=== PATIENT | male | born 1955 | race Caucasian/White ===

== ENCOUNTER → 2016-06-08 | Outpatient (CLI) | payer BC ==
[~2016-06-08] MED LIST: AMB10 PO; AZIT250T PO; CHOL1000 PO; MULT-506 PO; PANT40TA PO; PRED10TA PO; TRAM-10 PO
== END | disposition home or self-care (01) ==
LOC: C.LABBFT 11:19
PROVIDERS: ATTEND Internal Medicine
DX: R51 Headache (principal)

== ENCOUNTER 2016-06-10 14:10 | Emergency (ER) | payer BC ==
[~2016-06-10] VITALS: Ht 182.9 cm; Wt 92.9 kg
[~2016-06-10 14:10] MED LIST changes: -AZIT250T PO; -CHOL1000 PO; -PRED10TA PO; -TRAM-10 PO
[2016-06-10 14:20] VITALS: TEMP 36.4; Ht 182.9 cm; Wt 92.9 kg
--- NOTE | 2016-06-10 15:43 | EMERGENCY ROOM VISIT NOTE ---
History Report prepared by Macey: Jossue Steele Under the Supervision of: Dr. Lamin Gooden M.D. First contact with patient: 15:02 Chief Complaint: EYE ASSESSMENT Stated Complaint: BLURRY VISION L EYE History of Present Illness The patient is a 60 year old male who presents to the Emergency Room with complaints of persistent blurry vision of the left eye for the past week. The patient is sensitive to light. The patient also complains of some mild head pain behind the left eye. The patient was experiencing congestion as well. He saw his PCP two days ago, who diagnosed him with left-sided sinusitis. The patient was started on Prednisone and an antibiotic (Zithromax). The patient was told to come to the ED if his symptoms persisted. The patient denies any trauma or scratches to the eyes. The patient wears glasses, which correct his vision to 20/20. He saw his seals engraver this past April. Nothing was changed at that time. The patient has had his ocular pressure checked. He notes that the pressure was high one time, but he cannot remember in which eye. The patient denies any history of hypertension. Source of History: patient Onset: one week Position: eye (left) Quality: other (blurry vision) Timing: other (persistent) Associated Symptoms: + headache Review of Systems See HPI for pertinent positives & negatives. A total of 10 systems reviewed and were otherwise negative. Past Medical & Surgical Medical Problems: (1) HLD (hyperlipidemia) Family History No pertinent family history Social History Smoking Status: Never Smoker Marital Status: Occupation Status: employed Current/Historical Medications Scheduled Azithromycin (Zithromax), 250 MG PO DAILY Cholecalciferol (Vitamin D3), Unknown Dose PO BID Multivitamin (Multivitamin), 1 TAB PO DAILY Pantoprazole (Protonix), 40 MG PO DAILY Prednisone Tab (Prednisone), 10 MG PO UD Zolpidem Tartrate (Ambien *), 10 MG PO HS PRN Scheduled PRN Tramadol (Ultram), 50-100 MG PO Q6H PRN for Pain Allergies Coded Allergies: Latex (Verified Allergy, Unknown, RASH, 06/10/16) Penicillins (Verified Allergy, Unknown, CHILDHOOD REACTION, 06/10/16) Gluten Meal (Unverified Adverse Reaction, Intermediate, BLOATING, 06/10/16) Gluten (Unverified Adverse Reaction, Unknown, BLOATING, 06/10/16) Physical Exam Vital Signs Date Time Temp Pulse Resp B/P Pulse Ox O2 Delivery O2 Flow Rate FiO2 06/10/16 17:34 64 16 150/88 98 06/10/16 16:12 58 19 150/94 99 Room Air 06/10/16 14:20 36.4 65 18 172/115 97 Room Air Physical Exam GENERAL: Patient is in no acute distress. HEENT: No acute trauma, normocephalic atraumatic, mucous membranes moist, no nasal congestion, no scleral icterus. no proptosis, pupils are equal round and reactive to light, no left eye injection or tearing, extraocular movements are intact and full, no sinus discomfort with percussion. NECK: No stridor, no adenopathy, no meningismus, trachea is midline. LUNGS: Clear to auscultation bilaterally, no wheeze, no rhonchi, breath sounds equal. HEART: Without murmurs gallops or rubs, regular rate and rhythm. ABDOMEN: Soft, nontender, bowel sounds positive, no hernias, no peritonitis. EXTREMITIES: No cyanosis or edema, full range of motion of all the joints without pain or difficulty, no signs for acute trauma. NEUROLOGIC: Oriented x 3, no acute motor or sensory deficits, no focal weakness. No pronator drift. No cerebellar dysfunction. SKIN: No rash, no jaundice, no diaphoresis. LEFT EYE EXAM POST-DILATION: Eyegrounds are intact, no papilledema, no hemorrhages, no issues identified. Medical Decision & Procedures ER Provider Diagnostic Interpretation: Ocular pressure: 24 on the right, [address] results as stated below per my review and radiologist interpretation: SINUS CT CT DOSE: 577.80 mGy.cm HISTORY: left eye face pain, poss sinusitis TECHNIQUE: Multiaxial CT images of the paranasal sinuses were performed and reformatted in the coronal plane without the use of contrast. COMPARISON: None. FINDINGS: No fluid levels within the paranasal sinuses. Mild mucoperiosteal thickening within the floor of the frontal sinuses, ethmoid air cells, and bilateral maxillary sinuses. There are small retention cysts within the left maxillary sinus and sphenoid sinus. The mastoid air cells are clear. The bilateral ostiomeatal units are patent. The nasal septum is essentially midline. The orbits are unremarkable. IMPRESSION: Mild chronic sinus disease as described above. No fluid levels to suggest acute sinusitis at this time. Electronically signed by: Humberto Dee M.D. 06/10/2016 4:03 PM Dictated Date/Time: 06/10/2016 3:58 PM Medications Administered Medications (Trade) Dose Ordered Sig/Sd Route Start Time Stop Time Status Last Admin Dose Admin Tropicamide (Mydriacyl 0.5% Oph Soln) 2 drops NOW ONCE OP 06/10/16 16:15 06/10/16 16:16 DC 06/10/16 16:11 2 DROPS Procedure Slit Lamp Examination Indication: Blurry vision. The left eye was prepped with topical proparacaine. Slit lamp examination was performed in the standard fashion. Cornea appeared clear. Anterior chamber clear. Scleral injection not present. No discharge present. Fluorescein examination performed and revealed no scratches or foreign debris. No foreign bodies noted. Negative Antonia sign. The patient tolerated the procedure well without complication. ED Course 1503: The patient was evaluated in room B12b. A complete history and physical exam was performed. 1615: Tropicamide 2 drops OP. Left eye reexamined. 1704: Spoke with Dr. Albert, Facilities Operator. He said the patient can be discharged. 1712: Reassessed the patient. Discussed the findings with him. He verbalized understanding and agreement of the treatment plan. The patient is ready for discharge. Medical Decision Differential diagnosis includes glaucoma, corneal irritation, retinal detachment , retroorbital hematoma, sinusitis, migraine, optic neuritis. The patient presents with some left eye discomfort and some blurry vision in the left eye. His symptoms have been ongoing for several days. He is on Zithromax and prednisone for sinusitis. On exam, the patient did not have tearing or scleral injection. His pupil on the left was normal in size and reactive to light. Eye pressure testing was equal on both sides. His slit lamp exam was unremarkable as noted above. I did dilate his left eye, the eye grounds were intact without papilledema, there was no hemorrhage. His visual acuity was 20/25 in both eyes. There was no left -sided facial redness, there was no proptosis. No signs of a facial cellulitis. Sinus CT showed no evidence for sinusitis that was thought acute, only chronic findings noted. There was no evidence for problems with the left orbit. I spoke with the on-call photographic printer. The patient is being discharged with an outpatient evaluation tomorrow. The cause for all his symptoms is unclear. He was reassured though and discharged home. Consults Time Called: 1699 Consulting Physician: Dr. Albert, Facilities Operator Returned Call: [phone]: Spoke with Dr. Albert, Facilities Operator. He said the patient can be discharged. Impression Primary Impression: Left eye pain Additional Impression: Blurry vision, left eye Scribe Attestation The scribe's documentation has been prepared under my direction and personally reviewed by me in its entirety. I confirm that the note above accurately reflects all work, treatment, procedures, and medical decision making performed by me. Departure Information Dispostion Home / Self-Care Referrals Tavares Haro M.D. (PCP) Forms HOME CARE DOCUMENTATION FORM, IMPORTANT VISIT INFORMATION Patient Instructions My [facility] Additional Instructions call [facility] office in the am for an appt eye workup today was ok continue the meds you are on now until finished return if worsening Problem Qualifiers
--- NOTE | 2016-06-10 16:05 | DIAGNOSTIC IMAGING REPORT ---
SINUS CT CT DOSE: 577.80 mGy.cm HISTORY: left eye face pain, poss sinusitis TECHNIQUE: Multiaxial CT images of the paranasal sinuses were performed and reformatted in the coronal plane without the use of contrast. COMPARISON: None. FINDINGS: No fluid levels within the paranasal sinuses. Mild mucoperiosteal thickening within the floor of the frontal sinuses, ethmoid air cells, and bilateral maxillary sinuses. There are small retention cysts within the left maxillary sinus and sphenoid sinus. The mastoid air cells are clear. The bilateral ostiomeatal units are patent. The nasal septum is essentially midline. The orbits are unremarkable. IMPRESSION: Mild chronic sinus disease as described above. No fluid levels to suggest acute sinusitis at this time. Electronically signed by: Humberto Dee M.D. 06/10/2016 4:03 PM Dictated Date/Time: 06/10/2016 3:58 PM
[2016-06-10] MEDS ORDERED: TRAM-10 PO (16:10)
[2016-06-10] MEDS ORDERED: PRED10TA PO (16:10)
[2016-06-10] MEDS ORDERED: AZIT250T PO (16:10)
[2016-06-10] MEDS ORDERED: CHOL1000 PO (16:13)
[2016-06-10] MEDS ORDERED: TROPICAMIDE 0.5% OP SOLN 15 ML BTL OP ONE (16:15)
[2016-06-10 17:34] VITALS: BP 150/88; PULSE 64; O2SAT 98
== END 2016-06-10 17:35 | disposition home or self-care (01) ==
LOC: C.EDB 14:10
DX: H57.12 Ocular pain, left eye (principal); H53.8 Other visual disturbances; J01.90 Acute sinusitis, unspecified

== ENCOUNTER → 2016-06-21 | Outpatient (CLI) | payer BC ==
[~2016-06-21] MED LIST changes: +AZIT250T PO; +CHOL1000 PO; +PRED10TA PO; +TRAM-10 PO
[2016-06-21 17:54] LABS: BASO % 0.5 %; BASO ABS # 0.03 K/uL (0-0.2); COMPLETE YES; EOS % 1.9 %; HEMATOCRIT 46.6 % (42-52); IG% 0.2 %; LYMPH % 38.3 %; LYMPH ABS # 2.43 K/uL (1.2-3.4); MEAN CELL VOLUME 87.1 fL (80-100); MEAN CORPUSCULAR HEMOGLOBIN 30.1 pg (25-34); MEAN CORPUSCULAR HGB CONC 34.5 g/dl (32-36); MONO % 11.4 %; NEUT % 47.7 %; PLATELET COUNT 227 K/uL (130-400); RED BLOOD COUNT 5.35 M/uL (4.7-6.1); WHITE BLOOD COUNT 6.34 K/uL (4.8-10.8)
[2016-06-21 18:22] LABS: ALT/SGPT 36 U/L (12-78); BLOOD UREA NITROGEN 16 mg/dl (7-18); BUN/CREATININE RATIO 17.5 (10-20); CALCIUM 8.9 mg/dl (8.5-10.1); CARBON DIOXIDE 25 mmol/L (21-32); CHLORIDE 105 mmol/L (98-107); CREATININE 0.91 mg/dl (0.60-1.40); GLUCOSE 104 mg/dl (70-99); POTASSIUM 3.7 mmol/L (3.5-5.1); SODIUM 141 mmol/L (136-145)
[2016-06-21 18:32] LABS: ALB/GLOB RATIO 1.3 (0.9-2); ALKALINE PHOSPHATASE 73 U/L (45-117); AST/SGOT 21 U/L (15-37); THYROID STIMULATING HORMONE 0.912 uIu/ml (0.300-4.500)
[2016-06-22 06:16] LABS: ESTIMATED AVERAGE GLUCOSE 123 mg/dl; HA1C FLAG Normal (Normal)
== END | disposition home or self-care (01) ==
LOC: C.LABBFT 12:23
PROVIDERS: ATTEND Internal Medicine
DX: R73.9 Hyperglycemia, unspecified (principal); H53.8 Other visual disturbances

== ENCOUNTER → 2017-03-02 | Outpatient (CLI) | payer BC ==
[2017-03-02 10:21] LABS: ESTIMATED AVERAGE GLUCOSE 117 mg/dl; HA1C FLAG Normal (Normal)
[2017-03-02 10:38] LABS: ALT/SGPT 27 U/L (12-78); AST/SGOT 17 U/L (15-37); BLOOD UREA NITROGEN 15 mg/dl (7-18); CALCIUM 8.7 mg/dl (8.5-10.1); CARBON DIOXIDE 27 mmol/L (21-32); CHLORIDE 106 mmol/L (98-107); CREATININE 0.88 mg/dl (0.60-1.40); GLUCOSE 101 mg/dl (70-99); POTASSIUM 4.1 mmol/L (3.5-5.1); SODIUM 140 mmol/L (136-145)
[2017-03-02 10:44] LABS: ALB/GLOB RATIO 1.1 (0.9-2); ALKALINE PHOSPHATASE 94 U/L (45-117); CHOLESTEROL 141 mg/dl (0-200); CHOLESTEROL/HDL RATIO 2.7; HDL CHOLESTEROL 52 mg/dl; LDL CHOLESTEROL CALCULATED 72 mg/dl; PROSTATE SPECIFIC ANTIGEN 0.974 ng/ml (0.000-4.000); TRIGLYCERIDES 87 mg/dl (0-150); VERY LOW DENSITY LIPOPROT CALC 17 mg/dl
== END | disposition home or self-care (01) ==
LOC: C.LAB 08:38
PROVIDERS: ATTEND Physician Assistant Medical
DX: R73.9 Hyperglycemia, unspecified (principal); Z12.5 Encounter for screening for malignant neoplasm of prostate; E55.9 Vitamin D deficiency, unspecified

== ENCOUNTER → 2017-05-02 | Outpatient (CLI) | payer BC ==
--- NOTE | 2017-05-07 11:38 | CODING QUERY MEDICAL NECESSITY ---
SUPPORTING DIAGNOSIS NEEDED A supporting diagnosis is required for the test/procedure performed on this patient in order for us to be reimbursed by the patient's insurance. Please provide a supporting diagnosis for the following test/procedure listed below next to the test name along with your signature. *If there is no additional diagnosis for this patient that would support the following test/procedure please document that below next to the test/procedure. Test(s)/Procedure(s) that require a supporting diagnosis: * DXA, BONE DENSITY AXIAL DIAGNOSIS: Provider Signature: Date: Thank you Magda Chapatiz Information Management Once completed, please kindly fax back to [phone] For questions please call [phone]
== END | disposition home or self-care (01) ==
LOC: C.MAMM 07:53
PROVIDERS: ATTEND Nurse Practitioner Family
DX: K90.0 Celiac disease (principal)

== ENCOUNTER 2020-06-05 02:38 | Inpatient (IN) ==
[2020-06-05] MEDS ORDERED: fentaNYL citrate 100 MCG/2 ML VIAL ONE ×3 (02:50→03:55)
[2020-06-05 03:00] LABS: Basophils # (auto) 0.03 K/uL (0-0.2); Basophils % (auto) 0.4 %; Eosinophils # (auto) 0.14 K/uL (0-0.5); Eosinophils % (auto) 2.1 %; Hematocrit (blood only) 48.2 % (42-52); Hemoglobin 16.3 g/dL (14.0-18.0); Immature Granulocytes # (auto) 0.01 K/uL (0.00-0.02); Immature Granulocytes % (auto) 0.1 %; Lymphocytes # (auto) 2.75 K/uL (1.2-3.4); Lymphocytes % (auto) 40.9 %; Mean Corpuscular Hgb Conc 33.8 g/dL (32-36); Mean Corpuscular Volume 88.6 fL (80-100); Mean Platelet Volume 10.9 fL (7.4-10.4); Monocytes # (auto) 0.64 K/uL (0.11-0.59); Monocytes % (auto) 9.5 %; Neutrophils # (auto) 3.16 K/uL (1.4-6.5); Platelet Count 243 K/uL (130-400); RDW Coefficient of Variation 13.4 % (11.5-14.5); RDW Standard Deviation 43.2 fL (36.4-46.3); Red Blood Count 5.44 M/uL (4.7-6.1); White Blood Count 6.73 K/uL (4.8-10.8)
[2020-06-05] MEDS ORDERED: niCARdipine HCL INJ 2.5 MG/ML 10 ML AMP ONE (03:09)
[2020-06-05] MEDS ORDERED: HEPARIN (PORCINE) 1000 UNIT/ML 10 ML (CATH LAB USE ONLY) ONE (03:09)
[2020-06-05] MEDS ORDERED: MIDAZOLAM HCL 1 MG/ML 2ML VIAL ONE ×2 (03:10→03:51)
[2020-06-05] MEDS ORDERED: NITROGLYCERIN/D5W 100MCG/ML 20ML SYR ONE (03:10)
[2020-06-05 03:19] LABS: Albumin Level 3.8 gm/dl (3.4-5.0); BUN Creatinine Ratio 25.8 (10-20); Creatinine Clr Calc Pharmacy 75.3 ml/min; Est GFR (African American) 85.2; Est GFR (Non-African American) 73.5; Potassium 3.7 mmol/L (3.5-5.1)
[2020-06-05 03:26] LABS: iSTAT Creatinine 0.7 mg/dl (0.6-1.3); iSTAT Hemoglobin 15.6 g/dl (14.0-18.0); iSTAT Ionized Calcium 1.15 mmol/l (1.12-1.32); iSTAT Potassium 3.6 mmol/L (3.3-5.0)
--- NOTE | 2020-06-05 03:27 | Pre Anesthesia Assessment ---
Date of Service June 05, 2020 Pre Sedation Assessment Vital Signs Temp Pulse Pulse Resp BP Pulse Ox 06/05/20 03:02 97 06/05/20 02:49 97.9 F 62 16 136/85 98 06/05/20 02:44 63 16 97 Cardiovascular RRR, no murmur, no edema Respiratory normal respiratory effort, lungs clear to auscultation Pre-Sedation Airway Assessment Smoking Status: Never smoker Hx Sleep Apnea: No Hx Difficult Intubation: No Short, Thick Neck: No Thyromental Distance: > or= 3.5 Finger Breadths Oral Cavity: + WNL Mallampati Class: III ASA: ASA3 Procedure Planning Contraindications for Sedation: none Current Medications Reviewed: Yes Notes The planned sedation has been discussed with the patient. Informed Consent was obtained. I have identified the patient, determined the appropriateness of sedation and have assessed the patient immediately prior to the procedure. All medicine(s) and interventions are by my order.
[2020-06-05 03:30] LABS: Albumin Globulin Ratio 1.1 (0.9-2); Bilirubin,Total 0.6 mg/dl (0.2-1); Creatine Kinase MB 3.2 ng/ml (0.5-3.6); Globulin 3.4 gm/dl (2.5-4.0); Thyroid Stimulating Hormone 1.75 uIu/ml (0.300-4.500); Total Protein 7.2 gm/dl (6.4-8.2); Troponin I 0.019 ng/ml (0-0.045)
[2020-06-05 03:32] LABS: INR 1.1 (0.9-1.1); Partial Thromboplastin Ratio 0.9; Partial Thromboplastin Time 25.9 Seconds (21.0-31.0); Prothrombin Time 11.2 Seconds (9.0-12.0)
--- NOTE | 2020-06-05 03:32 | Cardiology Consultation ---
Date of Consultation June 05, 2020 Assessment & Plan (1) Acute LA: Presentation consistent with anterior STEMI and recommend proceeding with emergent cardiac catheterization and likely primary PCI. No apparent contraindications to procedure. Discussed risks, benefits, alternatives of procedure with patient and they are willing to proceed. Further recommendations pending findings of coronary angiography. History of Present Illness History of Present Illness 64-year-old man here with acute chest pain and ECG concerning for acute LA. Patient seen emergently in the ED after heart alert activated on arrival. No prior cardiac history. Cardiac risk factors include family history of CAD involving his father who had multiple MIs. Other medical issues include GERD, celiac disease, diverticulosis and chronic venous insufficiency. Chest pain began approximately 12:50 AM, almost 2 hours prior to arrival waking him from sleep. Describes initially nausea followed by pain in his left wrist and then chest pain at its worst 7-10.. Denies similar symptoms in the past. ECG in route unremarkable Chest pain variable, down to 2 out of 10 after nitroglycerin, fentanyl. Hemodynamically stable. EKG in ED showed sinus rhythm with anterior ST elevations. Allergies Allergy/AdvReac Type Severity Reaction Status Date / Time latex Allergy Unknown RASH Verified 06/05/20 02:47 Penicillins Allergy Unknown CHILDHOOD Verified 06/05/20 02:47 REACTION gluten AdvReac Intermediate BLOATING Verified 06/05/20 02:47 Home Medications Medication Instructions Recorded Confirmed Type multivitamin 1 tab PO DAILY #30 tab 11/27/18 06/05/20 Rx escitalopram oxalate 10 mg tablet 10 mg PO DAILY #30 tab 01/11/20 06/05/20 Rx zolpidem 10 mg tablet 10 mg PO DAILY PRN #90 tab 05/13/20 06/05/20 Rx pantoprazole 40 mg tablet,delayed 40 mg PO DAILY #90 tab 06/02/20 06/05/20 Rx release calcium carb and citrate-vitD3 1 tab PO DAILY 06/05/20 06/05/20 History cranberry 500 mg PO DAILY 06/05/20 06/05/20 History elderberry fruit and flower 1 cap PO DAILY 06/05/20 06/05/20 History Patient History Medical History Diverticulosis Surgical History History of cholecystectomy History of colonoscopy (12/23/15) History of esophagogastroduodenoscopy History of hernia repair History of varicose vein ligation Family History Unknown Diabetes Coronary heart disease Mother Amyotrophic lateral sclerosis Father Hypertension Cancer Myocardial infarction Denies family history of Ovarian cancer Prostate cancer Breast cancer Colorectal cancer Social History Smoking Status: Never smoker Second Hand Exposure: No; Hx Alcohol Use: No Hx Substance Use: No Visual Impairment: No Limitations Hearing Ability: Normal marital status: Current Living Situation: Spouse current occupational status: employed current occupation: construction Feels Safe at Home: Yes Childhood Exposure to Second-Hand Smoke: Yes Dental Care, Regularly: No Physical Activity Frequency: Daily Review of Systems Review of Systems: All systems reviewed & are unremarkable except as noted in HPI & below Physical Exam Physical Exam: General: Uncomfortable, diaphoretic HEENT: Sclerae anicteric Lungs: Clear to auscultation bilaterally Cardiac: Regular rate and rhythm, no murmurs. Abdomen: Soft, nontender Extremities: Warm, well perfused, trace edema, reticular veins/telangiectasias. 2+ radial pulses Neuro: Nonfocal Psych: Alert orient x3, normal affect and mood Results & Data ([facility]) Vital Signs (Past 12 Hours) Vital Signs Temp Pulse Pulse Resp BP Pulse Ox 06/05/20 03:02 97 06/05/20 02:49 97.9 F 62 16 136/85 98 06/05/20 02:44 63 16 97 PG Care Time/CCT Total # of Minutes Spent Total Time Spent with Patient: Total time spent is greater than 50% in coordination of care (as documented) at patient's floor/unit and/or counseling patient: Coding Level of Care Code 99796 Inpt Consult Level 5 Diagnoses Acute LA I21.9
[2020-06-05] MEDS ORDERED: TICAGRELOR 90 MG TAB PO ONE (04:28)
[2020-06-05] MEDS ORDERED: ONDANSETRON INJ 2 MG/ML 2 ML VIAL IV PRN (04:37)
[2020-06-05] MEDS ORDERED: NITROGLYCERIN SL 0.4 MG/TAB TAB SL PRN (04:37)
[2020-06-05] MEDS ORDERED: ACETAMINOPHEN 325 MG TAB PO PRN (04:37)
[2020-06-05] MEDS ORDERED: MoRPHine SULFATE 2 MG/ML CARP IV PRN (04:37)
[2020-06-05] MEDS ORDERED: ALUMINUM/MAGNESIUM SUSP 30 ML UDC PO PRN (04:42)
[2020-06-05] MEDS ORDERED: ZOLPIDEM TARTRATE 10 MG TAB PO PRN (04:44)
[2020-06-05] MEDS ORDERED: SODIUM CHLORIDE 0.9% 1000ML 1,000 ML IV SCH (04:45)
--- NOTE | 2020-06-05 04:47 | Post Anesthesia Assessment ---
Date of Service June 05, 2020 Post Sedation Assessment Vital Signs Temp Pulse Pulse Resp BP Pulse Ox 06/05/20 03:02 97 06/05/20 02:49 97.9 F 62 16 136/85 98 06/05/20 02:44 63 16 97 Recovery Score Activity: Moves 4 extremities Respiration: Deep Breath/Cough Circulation: +/-20% PreAnes Value Consciousness: Fully Awake Oxygen Saturation: O2 needed for >90% Discharge Sedation Level of Care: Fast Track Phase II Post Sedation Plan On clinical assessment, the patient appears to have tolerated the sedation without complications. Patient is recovering as anticipated. Patient will continue to be monitored by nursing and may be discharged when sedation discharge criteria are met per below protocol. Upon Completions of procedure up to 15 minutes continue every 5 minute vital signs and the P.A.R. score; then discharge to a Phase I or Fast Track to Phase II per the following guidelines: * Discharge Patient to appropriate Phase II area if PAR is 8 or greater or return to pre- procedure baseline. The post - procedure orders will be as directed. * If PAR score is less than 8 or not return to pre-procedure baseline then patient will follow Phase I monitoring till PAR is reached for Phase II. The Phase I may be done in procedure room or may call to secure a Phase I area. * If naloxone or flumazenil are used for reversal, hold in Phase I for continued monitoring from when last reversal dose was given for a minimum of 60 minutes or longer pending the nurse and/or physician discretion of patient condition before discharge to Phase II. Please call the Sedation Physician to re-evaluate and complete post-note for discharge to Phase II area. Do NOT discharge from procedure sedation or Phase 1 until post- sedation evaluation note is complete by procedure /sedation MD Sedation Discharge Instructions to be given to the patient at discharge to home.
--- NOTE | 2020-06-05 04:55 | Emergency Department Note ---
Impression & Plan ST elevation (STEMI) myocardial infarction ED Provider Note NAME: JOJO MCCRARY AGE: 64 SEX: M ARRIVES VIA: Ambulance INFORMANT: Patient EMS ED PROVIDER(S): Saray Ramirez DO CHIEF COMPLAINT: Left wrist pain and chest pain PLAN: Dispositio the patient was taken to the cardiac Teletypesetter with Dr. Noriega Condition: Guarded MEDICAL DECISION MAKING: This is a 64-year-old male patient who presents to the emergency department complaining of left wrist pain and chest pain who shows signs of a STEMI on presenting EKG. A heart alert was called and he was given IV fentanyl for the chest discomfort. Patient remained hemodynamically stable here in the emergency department. Chest x-ray was unremarkable. He was prepped for the Teletypesetter. Dr. Noriega arrived in the emergency department and took him to the cardiac Teletypesetter. Triage Nursing notes reviewed and agree them. Additional history obtained from EMS Vital Signs: reviewed and unremarkable Differential diagnosis: STEMI, aortic dissection, GERD, costochondritis ER treatment provided: IV fentanyl Diagnostics interpreted by me: ECG: Normal sinus rhythm at a rate of significant ST segment elevation in leads V2, V3 and V4 consistent with a STEMI. Cardiac Monitoring: Normal sinus rhythm at a rate of 62 Laboratory studies: See below Imaging studies: As per my interpretation Chest x-ray: Narrow mediastinum no pulmonary infiltrates or cardiomegaly HPI: 64/M arrives for evaluation of left wrist pain and chest pain. The patient woke from sleep at 12:50 AM with significant nausea and left wrist pain. Patient then began to develop some left-sided chest discomfort. EMS was called. He has no past medical history of heart disease. Patient's father at the age of 88 from heart attack. Patient was given 3 sublingual nitroglycerin by EMS with some relief of his chest discomfort and wrist discomfort. In route to the hospital, the patient's chest discomfort started to return. He was given an additional sublingual nitro and baby aspirin. ROS: See above HPI for pertinent positives & negatives. A total of 10 systems reviewed and were otherwise negative. PAST MEDICAL HISTORY:Hyperlipidemia; GERD FAMILY HISTORY:Heart disease SOCIAL HISTORY:Patient lives with his ; he works in construction HOME MEDICATIONS:See list ALLERGIES:See list VITALS:See Below PHYSICAL EXAMINATION: HEENT: Head - normocephalic and atraumatic Pupils are equal, round, and reactive to light. Extraocular eye muscles are intact, and sclera are anicteric. Nose - moist nasal mucosa without discharge. Mouth - moist buccal mucosa. Oropharynx is nonerythematous and there is no tonsillar exudate or edema noted. Neck: Supple; no JVD or cervical lymphadenopathy Heart: Bradycardic rate and rhythm. There is a normal S1 and S2 with no murmurs, clicks, or gallops appreciated. Lungs: Clear to auscultation bilaterally with no wheezes, rales, or rhonchi. Abdomen: Soft, completely nontender, nondistended, with good bowel sounds. There are no palpable pulsatile masses or hepatosplenomegaly. There is no guarding, rigidity, or rebound noted. Extremities: No evidence of cyanosis, clubbing, or edema. There are easily palpable peripheral pulses. Skin: warm and diaphoretic with good turgor and no rashes. ED COURSE: Times/Reassessments: [id number]: The patient was evaluated in room C6. A complete history and physical was performed. A twelve-lead EKG was obtained which revealed evidence of a STEMI. A heart alert was called. A second IV lock was initiated. An order was placed for continuous cardiac monitoring. The patient was in a normal sinus rhythm at 62. Patient continued to complain of significant left-sided chest discomfort and left wrist pain. He was given 50 mcg of IV fentanyl. A portable chest x-ray was ordered. Patient was able to get some relief of the discomfort. Vital signs remained stable. Discussed the case at the bedside with Dr. Noriega. I have personally spent greater than 30 minutes of critical care time in the direct management of this patient. This includes bedside care, interpretation of diagnostic studies, and testing, discussion with consultants, patient, and family members, and other required patient management activities. This 30 minutes is in excess of all separately billable procedures. Saray Ramirez DO Past Med/Surg History Medical History Diverticulosis Surgical History History of cholecystectomy History of colonoscopy (12/23/15) History of esophagogastroduodenoscopy History of hernia repair History of varicose vein ligation Family History Unknown Diabetes Coronary heart disease Mother Amyotrophic lateral sclerosis Father Hypertension Cancer Myocardial infarction Denies family history of Ovarian cancer Prostate cancer Breast cancer Colorectal cancer Social History Smoking Status: Never smoker Second Hand Exposure: No; Hx Alcohol Use: No Hx Substance Use: No Communication Ability: Effective Visual Impairment: No Limitations Hearing Ability: Normal Beliefs That Will Affect Care: None marital status: Current Living Situation: Family current occupational status: employed current occupation: construction Other Information That Helps Us Care for You: No Feels Safe at Home: Yes Safety Concerns: Feels Safe At This Time Childhood Exposure to Second-Hand Smoke: Yes Dental Care, Regularly: No Physical Activity Frequency: Daily Assistive Devices: Glasses Allergies Allergies Allergy/AdvReac Type Severity Reaction Status Date / Time latex Allergy Unknown RASH Verified 06/05/20 02:47 Penicillins Allergy Unknown CHILDHOOD Verified 06/05/20 02:47 REACTION gluten AdvReac Intermediate BLOATING Verified 06/05/20 02:47 Home Meds Home Medications Medication Instructions Recorded Confirmed calcium carb and citrate-vitD3 1 tab PO DAILY 06/05/20 06/05/20 cranberry 500 mg PO DAILY 06/05/20 06/05/20 elderberry fruit and flower 1 cap PO DAILY 06/05/20 06/05/20 Previous Rx's Medication Instructions Recorded multivitamin 1 tab PO DAILY #30 tab 11/27/18 escitalopram oxalate 10 mg tablet 10 mg PO DAILY #30 tab 01/11/20 zolpidem 10 mg tablet 10 mg PO DAILY PRN #90 tab 05/13/20 pantoprazole 40 mg tablet,delayed 40 mg PO DAILY #90 tab 06/02/20 release Results & Data (ED) Vital Signs Vital Signs - 24 hr 06/05/20 02:44 06/05/20 02:49 06/05/20 02:58 Temperature 36.6 C Temperature Source Oral Pulse Rate 62 Pulse Rate [Right Finger] 63 Pulse Rhythm Regular Pulse Strength Normal Respiratory Rate 16 16 Respiratory Effort / Characteristics Non-Labored Spontaneous Respiratory Depth Normal Normal Blood Pressure 136/85 Blood Pressure Mean 102 Blood Pressure Position Lying Pulse Oximetry 97 98 Oxygen Delivery Method Nasal Cannula Room Air Nasal Cannula Oxygen Flow Rate 3 3 Sepsis Recent Fever Within 48 Hours No Sepsis New/Unexplained Change in Mental Status N/A Sepsis Action Taken by Nursing No Action Required 06/05/20 03:02 Temperature Temperature Source Pulse Rate Pulse Rate [Right Finger] Pulse Rhythm Pulse Strength Respiratory Rate Respiratory Effort / Characteristics Respiratory Depth Blood Pressure Blood Pressure Mean Blood Pressure Position Pulse Oximetry 97 Oxygen Delivery Method Nasal Cannula Oxygen Flow Rate 3 Sepsis Recent Fever Within 48 Hours Sepsis New/Unexplained Change in Mental Status Sepsis Action Taken by Nursing Laboratory Data Result diagrams: 06/05/20 02:46 06/05/20 02:46 Lab Results 06/05/20 06/05/20 06/05/20 Range/Units 02:46 02:46 02:46 WBC 6.73 (4.8-10.8) K/uL RBC 5.44 (4.7-6.1) M/uL Hgb 16.3 (14.0-18.0) g/dL POC Hgb (14.0-18.0) g/dl Hct 48.2 (42-52) % POC Hct (42-52) % MCV 88.6 (80-100) fL MCH 30.0 (25-34) pg MCHC 33.8 (32-36) g/dL RDW Std Deviation 43.2 (36.4-46.3) fL RDW Coeff of Saul 13.4 (11.5-14.5) % Plt Count 243 (130-400) K/uL MPV 10.9 H (7.4-10.4) fL Immature Gran % (Auto) 0.1 % Neut % (Auto) 47.0 % Lymph % (Auto) 40.9 % Graves % (Auto) 9.5 % Eos % (Auto) 2.1 % Baso % (Auto) 0.4 % Neut # (Auto) 3.16 (1.4-6.5) K/uL Lymph # (Auto) 2.75 (1.2-3.4) K/uL Graves # (Auto) 0.64 H (0.11-0.59) K/uL Eos # (Auto) 0.14 (0-0.5) K/uL Baso # (Auto) 0.03 (0-0.2) K/uL Immature Gran # (Auto) 0.01 (0.00-0.02) K/uL PT Cancelled INR Cancelled APTT Cancelled PTT Ratio Cancelled Activ Coag Time Kaolin (94-140) SECONDS POC Sodium (135-144) mmol/L Sodium 141 (136-145) mmol/L POC Potassium (3.3-5.0) mmol/L Potassium 3.7 (3.5-5.1) mmol/L POC Chloride (101-112) mmol/L Chloride 108 H (98-107) mmol/L Carbon Dioxide 31 (21-32) mmol/L POC Total CO2 (24-31) mmol/L Anion Gap 2.0 L (3-11) POC Anion Gap (16-25) mmol/L POC BUN (7-18) mg/dl BUN 28 H (7-18) mg/dl Creatinine 1.07 (0.6-1.4) mg/dl POC Creatinine (0.6-1.3) mg/dl Est Cr Clr Drug Dosing 75.3 ml/min Est GFR ( Amer) 85.2 Est GFR (Non-Af Amer) 73.5 BUN/Creatinine Ratio 25.8 H (10-20) Glucose 191 H (70-99) mg/dl POC Glucose (other) (70-99) mg/dl Calcium 9.0 (8.5-10.1) mg/dl POC Ioniz Calcium Eduardo (1.12-1.32) mmol/l Magnesium 2.0 (1.8-2.4) mg/dl Total Bilirubin 0.6 (0.2-1) mg/dl AST 22 (15-37) U/L ALT 31 (12-78) U/L Alkaline Phosphatase 87 (45-117) U/L Total Creatine Kinase 162 (39-308) U/L CK-MB (CK-2) 3.2 (0.5-3.6) ng/ml CK/CKMB % Calc 2.0 (0-3.0) Troponin I 0.019 (0-0.045) ng/ml Total Protein 7.2 (6.4-8.2) gm/dl Albumin 3.8 (3.4-5.0) gm/dl Globulin 3.4 (2.5-4.0) gm/dl Albumin/Globulin Ratio 1.1 (0.9-2) Triglycerides (0-150) mg/dl Cholesterol (0-200) mg/dl LDL Cholesterol Direct mg/dl LDL Cholesterol, Calc VLDL Cholesterol, Calc mg/dl HDL Cholesterol mg/dl Cholesterol/HDL Ratio Lipase 167 (73-393) U/L TSH 1.750 (0.300-4.500) uIu/ml COVID-19 Eval Order SARS-CoV-2, RNA, NAAT (NEGATIVE) 06/05/20 06/05/20 06/05/20 Range/Units 02:46 02:46 02:46 WBC (4.8-10.8) K/uL RBC (4.7-6.1) M/uL Hgb (14.0-18.0) g/dL POC Hgb (14.0-18.0) g/dl Hct (42-52) % POC Hct (42-52) % MCV (80-100) fL MCH (25-34) pg MCHC (32-36) g/dL RDW Std Deviation (36.4-46.3) fL RDW Coeff of Saul (11.5-14.5) % Plt Count (130-400) K/uL MPV (7.4-10.4) fL Immature Gran % (Auto) % Neut % (Auto) % Lymph % (Auto) % Graves % (Auto) % Eos % (Auto) % Baso % (Auto) % Neut # (Auto) (1.4-6.5) K/uL Lymph # (Auto) (1.2-3.4) K/uL Graves # (Auto) (0.11-0.59) K/uL Eos # (Auto) (0-0.5) K/uL Baso # (Auto) (0-0.2) K/uL Immature Gran # (Auto) (0.00-0.02) K/uL PT INR APTT PTT Ratio Activ Coag Time Kaolin (94-140) SECONDS POC Sodium (135-144) mmol/L Sodium (136-145) mmol/L POC Potassium (3.3-5.0) mmol/L Potassium (3.5-5.1) mmol/L POC Chloride (101-112) mmol/L Chloride (98-107) mmol/L Carbon Dioxide (21-32) mmol/L POC Total CO2 (24-31) mmol/L Anion Gap (3-11) POC Anion Gap (16-25) mmol/L POC BUN (7-18) mg/dl BUN (7-18) mg/dl Creatinine (0.6-1.4) mg/dl POC Creatinine (0.6-1.3) mg/dl Est Cr Clr Drug Dosing ml/min Est GFR ( Amer) Est GFR (Non-Af Amer) BUN/Creatinine Ratio (10-20) Glucose (70-99) mg/dl POC Glucose (other) (70-99) mg/dl Calcium (8.5-10.1) mg/dl POC Ioniz Calcium Eduardo (1.12-1.32) mmol/l Magnesium (1.8-2.4) mg/dl Total Bilirubin (0.2-1) mg/dl AST (15-37) U/L ALT (12-78) U/L Alkaline Phosphatase (45-117) U/L Total Creatine Kinase (39-308) U/L CK-MB (CK-2) (0.5-3.6) ng/ml CK/CKMB % Calc (0-3.0) Troponin I (0-0.045) ng/ml Total Protein (6.4-8.2) gm/dl Albumin (3.4-5.0) gm/dl Globulin (2.5-4.0) gm/dl Albumin/Globulin Ratio (0.9-2) Triglycerides 170 H (0-150) mg/dl Cholesterol 159 (0-200) mg/dl LDL Cholesterol Direct 94 mg/dl LDL Cholesterol, Calc Not Reportable VLDL Cholesterol, Calc 34 mg/dl HDL Cholesterol 53 mg/dl Cholesterol/HDL Ratio 3 Lipase (73-393) U/L TSH (0.300-4.500) uIu/ml COVID-19 Eval Order Covid19 [facility] SARS-CoV-2, RNA, NAAT NEGATIVE (NEGATIVE) 06/05/20 06/05/20 06/05/20 Range/Units 03:09 03:13 03:55 WBC (4.8-10.8) K/uL RBC (4.7-6.1) M/uL Hgb (14.0-18.0) g/dL POC Hgb 15.6 (14.0-18.0) g/dl Hct (42-52) % POC Hct 46 (42-52) % MCV (80-100) fL MCH (25-34) pg MCHC (32-36) g/dL RDW Std Deviation (36.4-46.3) fL RDW Coeff of Saul (11.5-14.5) % Plt Count (130-400) K/uL MPV (7.4-10.4) fL Immature Gran % (Auto) % Neut % (Auto) % Lymph % (Auto) % Graves % (Auto) % Eos % (Auto) % Baso % (Auto) % Neut # (Auto) (1.4-6.5) K/uL Lymph # (Auto) (1.2-3.4) K/uL Graves # (Auto) (0.11-0.59) K/uL Eos # (Auto) (0-0.5) K/uL Baso # (Auto) (0-0.2) K/uL Immature Gran # (Auto) (0.00-0.02) K/uL PT 11.2 INR 1.1 APTT 25.9 PTT Ratio 0.9 Activ Coag Time Kaolin 202 H (94-140) SECONDS POC Sodium 138 (135-144) mmol/L Sodium (136-145) mmol/L POC Potassium 3.6 (3.3-5.0) mmol/L Potassium (3.5-5.1) mmol/L POC Chloride 107 (101-112) mmol/L Chloride (98-107) mmol/L Carbon Dioxide (21-32) mmol/L POC Total CO2 21 L (24-31) mmol/L Anion Gap (3-11) POC Anion Gap 14.0 L (16-25) mmol/L POC BUN 26 H (7-18) mg/dl BUN (7-18) mg/dl Creatinine (0.6-1.4) mg/dl POC Creatinine 0.7 (0.6-1.3) mg/dl Est Cr Clr Drug Dosing ml/min Est GFR ( Amer) Est GFR (Non-Af Amer) BUN/Creatinine Ratio (10-20) Glucose (70-99) mg/dl POC Glucose (other) 204 H (70-99) mg/dl Calcium (8.5-10.1) mg/dl POC Ioniz Calcium Eduardo 1.15 (1.12-1.32) mmol/l Magnesium (1.8-2.4) mg/dl Total Bilirubin (0.2-1) mg/dl AST (15-37) U/L ALT (12-78) U/L Alkaline Phosphatase (45-117) U/L Total Creatine Kinase (39-308) U/L CK-MB (CK-2) (0.5-3.6) ng/ml CK/CKMB % Calc (0-3.0) Troponin I (0-0.045) ng/ml Total Protein (6.4-8.2) gm/dl Albumin (3.4-5.0) gm/dl Globulin (2.5-4.0) gm/dl Albumin/Globulin Ratio (0.9-2) Triglycerides (0-150) mg/dl Cholesterol (0-200) mg/dl LDL Cholesterol Direct mg/dl LDL Cholesterol, Calc VLDL Cholesterol, Calc mg/dl HDL Cholesterol mg/dl Cholesterol/HDL Ratio Lipase (73-393) U/L TSH (0.300-4.500) uIu/ml COVID-19 Eval Order SARS-CoV-2, RNA, NAAT (NEGATIVE) 06/05/20 Range/Units 04:10 WBC (4.8-10.8) K/uL RBC (4.7-6.1) M/uL Hgb (14.0-18.0) g/dL POC Hgb (14.0-18.0) g/dl Hct (42-52) % POC Hct (42-52) % MCV (80-100) fL MCH (25-34) pg MCHC (32-36) g/dL RDW Std Deviation (36.4-46.3) fL RDW Coeff of Saul (11.5-14.5) % Plt Count (130-400) K/uL MPV (7.4-10.4) fL Immature Gran % (Auto) % Neut % (Auto) % Lymph % (Auto) % Graves % (Auto) % Eos % (Auto) % Baso % (Auto) % Neut # (Auto) (1.4-6.5) K/uL Lymph # (Auto) (1.2-3.4) K/uL Graves # (Auto) (0.11-0.59) K/uL Eos # (Auto) (0-0.5) K/uL Baso # (Auto) (0-0.2) K/uL Immature Gran # (Auto) (0.00-0.02) K/uL PT INR APTT PTT Ratio Activ Coag Time Kaolin 252 H (94-140) SECONDS POC Sodium (135-144) mmol/L Sodium (136-145) mmol/L POC Potassium (3.3-5.0) mmol/L Potassium (3.5-5.1) mmol/L POC Chloride (101-112) mmol/L Chloride (98-107) mmol/L Carbon Dioxide (21-32) mmol/L POC Total CO2 (24-31) mmol/L Anion Gap (3-11) POC Anion Gap (16-25) mmol/L POC BUN (7-18) mg/dl BUN (7-18) mg/dl Creatinine (0.6-1.4) mg/dl POC Creatinine (0.6-1.3) mg/dl Est Cr Clr Drug Dosing ml/min Est GFR ( Amer) Est GFR (Non-Af Amer) BUN/Creatinine Ratio (10-20) Glucose (70-99) mg/dl POC Glucose (other) (70-99) mg/dl Calcium (8.5-10.1) mg/dl POC Ioniz Calcium Eduardo (1.12-1.32) mmol/l Magnesium (1.8-2.4) mg/dl Total Bilirubin (0.2-1) mg/dl AST (15-37) U/L ALT (12-78) U/L Alkaline Phosphatase (45-117) U/L Total Creatine Kinase (39-308) U/L CK-MB (CK-2) (0.5-3.6) ng/ml CK/CKMB % Calc (0-3.0) Troponin I (0-0.045) ng/ml Total Protein (6.4-8.2) gm/dl Albumin (3.4-5.0) gm/dl Globulin (2.5-4.0) gm/dl Albumin/Globulin Ratio (0.9-2) Triglycerides (0-150) mg/dl Cholesterol (0-200) mg/dl LDL Cholesterol Direct mg/dl LDL Cholesterol, Calc VLDL Cholesterol, Calc mg/dl HDL Cholesterol mg/dl Cholesterol/HDL Ratio Lipase (73-393) U/L TSH (0.300-4.500) uIu/ml COVID-19 Eval Order SARS-CoV-2, RNA, NAAT (NEGATIVE) Administered Medications Aspirin (Aspirin 81 Mg Ectab) 81 mg PO QAM [facility] Stop: 07/05/20 08:59 Last Admin: 06/05/20 07:26 Dose: 81 mg Documented by: [id number] Atorvastatin Calcium (Atorvastatin 40 Mg Tab) 80 mg PO QAM [facility] Stop: 07/05/20 08:59 Last Admin: 06/05/20 07:26 Dose: 80 mg Documented by: [id number] Escitalopram Oxalate (Escitalopram Oxalate 10 Mg Tab) 10 mg PO DAILY [facility] Stop: 07/05/20 08:59 Last Admin: 06/05/20 07:26 Dose: 10 mg Documented by: [id number] Lisinopril (Lisinopril 5 Mg Tab) 5 mg PO QAM [facility] Stop: 07/05/20 08:59 Last Admin: 06/05/20 07:26 Dose: 5 mg Documented by: [id number] Metoprolol Tartrate (Metoprolol Tartrate 25 Mg Tab) 25 mg PO BID [facility] Stop: 07/05/20 20:59 Last Admin: 06/05/20 21:35 Dose: 25 mg Documented by: [id number] Multivitamins (Multivitamin Tab) 1 tab PO DAILY [facility] Stop: 07/05/20 08:59 Last Admin: 06/05/20 07:26 Dose: 1 tab Documented by: [id number] Multivitamins/Minerals (Calcium 600mg + Vit D 400 Iu Tab) 1 tab PO DAILY [facility] Stop: 07/05/20 08:59 Last Admin: 06/05/20 07:26 Dose: 1 tab Documented by: [id number] Pantoprazole Sodium (Pantoprazole 40 Mg Tab) 40 mg PO DAILY [facility]ARR[facility] Stop: 07/05/20 08:59 Last Admin: 06/05/20 07:26 Dose: 40 mg Documented by: [id number] Spironolactone (Spironolactone 25 Mg Tab) 25 mg PO QAM [facility] Stop: 07/05/20 14:44 Last Admin: 06/05/20 16:04 Dose: 25 mg Documented by: [id number] Ticagrelor (Ticagrelor 90 Mg Tab) 90 mg PO Q12H [facility] Stop: 07/05/20 16:29 Last Admin: 06/05/20 16:17 Dose: 90 mg Documented by: [id number] Zolpidem Tartrate (Zolpidem Tartrate 10 Mg Tab) 10 mg PO DAILY PRN PRN Reason: sleep Stop: 07/05/20 04:43 Last Admin: 06/05/20 21:34 Dose: 10 mg Documented by: [id number] Discontinued Medications Fentanyl Citrate (Fentanyl Citrate 100 Mcg/2 Ml Vial) Confirm Administered Dose 100 mcg .ROUTE .STK-MED ONE Stop: 06/05/20 02:51 Last Increment: 06/05/20 02:57 Dose: 50 mcg Documented by: [id number] Fentanyl Citrate (Fentanyl Citrate 100 Mcg/2 Ml Vial) Confirm Administered Dose 100 mcg .ROUTE .[facility] ONE Stop: 06/05/20 03:11 Last Admin: 06/05/20 05:36 Dose: Not Given Documented by: [id number] Fentanyl Citrate (Fentanyl Citrate 100 Mcg/2 Ml Vial) Confirm Administered Dose 100 mcg .ROUTE .[facility] ONE Stop: 06/05/20 03:56 Last Admin: 06/05/20 05:36 Dose: Not Given Documented by: [id number] Heparin Sodium (Porcine) (Heparin (Porcine) 1000 Unit/Ml 10 Ml (Teletypesetter Use Only)) Confirm Administered Dose 10,000 units .ROUTE .[facility] ONE Stop: 06/05/20 03:10 Last Admin: 06/05/20 05:36 Dose: Not Given Documented by: [id number] Heparin Sodium/Sodium Chloride (Heparin In Nss Infusion 1000 Unit/500 Ml (2 U/Ml) Bag) Confirm Administered Dose 3,000 units IV .ST-MED ONE Stop: 06/05/20 03:11 Last Admin: 06/05/20 05:36 Dose: Not Given Documented by: [id number] Sodium Chloride (Nss 1000ml) 1,000 mls @ 100 mls/hr IV .Q10H [facility] Stop: 06/05/20 12:14 Last Infusion: 06/05/20 11:59 Dose: 0 mls/hr Documented by: [id number] Admin: 06/05/20 06:06 Dose: 100 mls/hr Documented by: [id number] Potassium Chloride (K Bassam / Wtr) 10 meq in 100 mls @ 100 mls/hr IV Q1H [facility] Stop: 06/05/20 08:29 Last Infusion: 06/05/20 09:16 Dose: 0 mls/hr Documented by: [id number] Admin: 06/05/20 08:16 Dose: 100 mls/hr Documented by: [id number] Infusion: 06/05/20 08:16 Dose: 100 mls/hr Documented by: [id number] Admin: 06/05/20 07:26 Dose: 100 mls/hr Documented by: [id number] Infusion: 06/05/20 07:06 Dose: 100 mls/hr Documented by: [id number] Admin: 06/05/20 06:06 Dose: 100 mls/hr Documented by: [id number] Metoprolol Tartrate (Metoprolol Tartrate 25 Mg Tab) 12.5 mg PO BID [facility] Stop: 07/05/20 08:59 Last Admin: 06/05/20 07:26 Dose: 12.5 mg Documented by: [id number] Midazolam HCl (Midazolam Hcl 1 Mg/Ml 2ml Vial) Confirm Administered Dose 2 mg .ROUTE .STK-MED ONE Stop: 06/05/20 03:11 Last Admin: 06/05/20 05:36 Dose: Not Given Documented by: [id number] Midazolam HCl (Midazolam Hcl 1 Mg/Ml 2ml Vial) Confirm Administered Dose 2 mg .ROUTE .STK-MED ONE Stop: 06/05/20 03:52 Last Admin: 06/05/20 05:36 Dose: Not Given Documented by: [id number] Nicardipine HCl (Nicardipine Hcl Inj 2.5 Mg/Ml 10 Ml Amp) Confirm Administered Dose 25 mg .ROUTE .STK-MED ONE Stop: 06/05/20 03:10 Last Admin: 06/05/20 05:35 Dose: Not Given Documented by: [id number] Nitroglycerin/Dextrose (Nitroglycerin/D5w 100mcg/Ml 20ml Syr) Confirm Administered Dose 2,000 mcg .ROUTE .STK-MED ONE Stop: 06/05/20 03:11 Last Admin: 06/05/20 05:36 Dose: Not Given Documented by: [id number] Ticagrelor (Ticagrelor 90 Mg Tab) Confirm Administered Dose 180 mg PO .STK-MED ONE Stop: 06/05/20 04:29 Last Admin: 06/05/20 04:41 Dose: 180 mg Documented by: [id number] Discharge Plan Visit Data Chief Complaint: Chest Pain Stated Complaint: CHEST PAIN ED Provider: Saray Ramirez Discharge Problem: ST elevation (STEMI) myocardial infarction Patient Disposition: Admitted As Inpatient Discharge Instructions Interventions: ED Discharge Assessment Last Done: 06/05/20 03:25 Discharge Problem: ST elevation (STEMI) myocardial infarction Qualifiers: Involved coronary artery: LAD coronary artery Qualified Code(s): I21.02 - ST elevation (STEMI) myocardial infarction involving left anterior descending coronary artery
--- NOTE | 2020-06-05 04:59 | Cardiac Catheterization ---
[facility] Data: Dental Lab Technician Cardiac Status Clinical evaluation leading to the procedure CAD Presenation: STEMI Anginal Classification: CCS IV Heart Failure: No Cardiogenic Shock within 24 Hours: No Cardiac Arrest within 24 Hours: No Imaging Studies Past 6 Months: No Stress Studies Past 6 Months: No Diagnostic Physicians Name: Harish Noriega MD Status: Emergency Closure Device Percutaneous Entry Location: Radial Closure Device: Radial Band Recommendations: PCI without planned CABG PCI Indication: Immediate PCI for STEMI First Noted: First EKG Lesion Segment Name: Proximal LAD Culprit Artery: Yes Stenosis Prior to Rx (%): 100 Chronic Total Occlusion: No IVUS: Yes FFR: No Pre-Procedure AISHWARYA Flow: 0 Previously Treated Lesion: No Lesion Complexity: Non-High/Non-C Lesion Length (mm): 30 Thrombus Present: Yes Bifurcation Lesion: No Guidewire Across Lesion: Stenosis Post-Procedure (%): 0 Post-Procedure AISHWARYA Flow: 3 Devices(s) Deployed: Yes Yes Intraprocedure Events Significant Disection: No Perforation: No Cardiac Cath Procedure Full Procedure Date June 05, 2020 Pre-Procedure Diagnosis Pre-Procedure Diagnosis: STEMI AUC Score AUC Score: 9 Post-Procedure Diagnosis Post-Procedure Diagnosis: Severe CAD, Successful PCI and Normal Intracardiac Pressures Procedure(s) Performed Procedure(s) Performed: Coronary Angiography, Left Heart Cath, Drug Eluting S tent and IVUS Billing Representative Harish Noriega MD Unix Systems Administrator(s) Cornelius Estimated Blood Loss Estimated Blood Loss: 15 Medication(s) Medication(s): Fentanyl, Heparin, Lidocaine 1%, Nicardipine, Nitroglycerin and Versed Medication(s): Ticagrelor Summary of Findings Indication: STEMI/Heart Alert Access: 6 Fr right radial artery Catheters: EBU 3.5 guide, diagnostic JR4, pigtail Findings: LM -normal caliber, no significant disease LAD -medium caliber, mild epicardial calcification, 100% acute proximal occlusion. Ramusmedium caliber, no significant disease Circumflex -medium caliber, 30% ostial, mid segment luminal irregularities RCA -large caliber, 20 to 30% proximal, mid and distal luminal irregularities. PDA without significant disease. LVEDP -17 -- PCI -- Antithrombotic therapy: Heparin, ticagrelor Procedure: Left main cannulated with EBU 3.5 guide BMW wire passed across lesion into distal vessel Proximal to mid LAD lesion predilated with 2.5 compliant balloon Hopkins IVUS placed to mid LAD to assess extent of disease, vessel sizing Pullback revealed heavy thrombus burden in mid segment just before takeoff of second diagonal with mild diffuse calcified disease extending back to proximal segment where again had severe stenosis. Dilated lesion stented with 3.0 x 33 mm Xience Shellie drug-eluting stent Stent post-dilated with 3.5 noncompliant balloon Repeat IVUS showed well-expanded stent, not completely opposed proximally and stent redilated with 4.0 NC IC vasodilators administered for spasm Post procedure AISHWARYA 3 flow, stent well expanded with minimal residual stenosis and no apparent cardiac complications. Arterial Closure: TR band Summary: 1. Anterior STEMI/100% acute proximal LAD occlusion 2. Mild non-culprit coronary artery disease -30% ostial circumflex 20 to 30% proximal RCA 3. Normal intracardiac filling pressure 4. Successful PCI of proximal to mid LAD with single drug-eluting stent (3.0 x 33 mm Xience; postdilated with 4.0 NC). Recommendations: Admit to ICU for continued monitoring Loaded with ticagrelor 180 mg in Dental Lab Technician Continue dual-antiplatelet therapy for at least 1 year. Trend troponins until peak, Check Echo Uptitrate beta-michelle/CAROLIN as BP allows High-dose statin Consult cardiac Rehab Hemodynamics Rest Ao:: 116/65/88 Final Ao: 95/56/76 LV: 95/16 Recommendations Recommendations: PCI without planned CABG Specimens Specimens: None Radiation Exposure (mGy) 2492 Contrast (mls) 135 Fluids (cc crystalloids) Fluids (cc crystalloids): 95 Drains Drains: None Anesthesia Moderate Procedural Complication(s) None Disposition ICU I attest to the content of the Intraoperative Record and any orders documented therein. Any exceptions are noted below. [facility] Card Cath Procedure Codes Cardiac Catheterization Procedure 1: Cardiovascular Cath Procedures: 21336 Coronaries and LHC (+/-LV) Therapeutic Services & Ancillary Proc Procedure 1: Cardiovascular Tx and Anc Procedures: 04294 IV Ultrasound (Coronary or Graft) Moderate Sedation Procedure 1: Sedation/Anesthesia: 77703 Mod Sedation by the same physician;Init15 Min Child Age 5 & Up Procedure 2: Sedation/Anesthesia: 42474 Mod Sedation by the same physician; Ea [id number] Minutes Stenting Procedure 1: Cardiovascular Stent Procedures: 09022 Perc transluminal revascularization of acute sub/total occl, aMI PG Care Time/CCT Total # of Minutes Spent Total Time Spent with Patient: Total time spent is greater than 50% in coordination of care (as documented) at patient's floor/unit and/or counseling patient:
[2020-06-05 05:37] LABS: Chol HDL Ratio 3; Cholesterol 159 mg/dl (0-200); HDL Cholesterol 53 mg/dl; LDL Cholesterol Direct 94 mg/dl; Triglycerides 170 mg/dl (0-150); VLDL Cholesterol 34 mg/dl
[2020-06-05] MEDS: POTASSIUM CHLORIDE / WTR 10 MEQ/100 ML PLCT IV SCH ×3 (06:06→08:16)
[2020-06-05] MEDS: ASPIRIN 81 MG ECTAB PO SCH (07:26)
[2020-06-05] MEDS: PANTOprazole 40 MG TAB PO SCH (07:26)
[2020-06-05] MEDS: MULTIVITAMIN TAB PO SCH (07:26)
[2020-06-05] MEDS: ATORVASTATIN 40 MG TAB PO SCH (07:26)
[2020-06-05] MEDS: CALCIUM 600MG + VIT D 400 IU TAB PO SCH (07:26)
[2020-06-05] MEDS: lisinopril 5 MG TAB PO SCH (07:26)
[2020-06-05] MEDS: ESCITALOPRAM OXALATE 10 MG TAB PO SCH (07:26)
--- NOTE | 2020-06-05 08:20 | XRay Report ---
XR chest 1V portable CLINICAL HISTORY: Atypical chest pain COMPARISON STUDY: 12/16/2009 FINDINGS: The heart is mildly enlarged. There is no failure. There is no focal pulmonary consolidatio n. There are no pleural effusions.[ IMPRESSION: Mild cardiomegaly. No acute findings. ACT 112: Negative or not required by law. Electronically signed by: Hiram Carter M.D. 06/05/2020 8:19 AM
[2020-06-05] MEDS ORDERED: METOPROLOL TARTRATE 25 MG TAB PO SCH (09:00)
--- NOTE | 2020-06-05 11:44 | XCELERA ---
[id number]
--- NOTE | 2020-06-05 12:37 | Electrocardiogram Report ---
Test Reason : Blood Pressure : / mmHG Vent. Rate : 065 BPM Atrial Rate : 065 BPM P-R Int : 172 ms QRS Dur : 082 ms QT Int : 392 ms P-R-T Axes : 047 -27 037 degrees QTc Int : 407 ms Normal sinus rhythm Anteroseptal infarct , new ACUTE VA / STEMI Abnormal ECG When compared with ECG of 05-JUN-2020 02:42, (unconfirmed) Acute Anteroseptal infarct is now Present Confirmed by Zhou Portillo ([id number]) on 06/05/2020 12:36:55 PM Referred By: REFERRED SELF Confirmed By:Zhou Portillo
--- NOTE | 2020-06-05 12:37 | Electrocardiogram Report ---
Test Reason : Blood Pressure : / mmHG Vent. Rate : 060 BPM Atrial Rate : 060 BPM P-R Int : 178 ms QRS Dur : 088 ms QT Int : 398 ms P-R-T Axes : 058 -07 029 degrees QTc Int : 398 ms Normal sinus rhythm ST elevation consider anterolateral injury or acute infarct ACUTE SD / STEMI Abnormal ECG When compared with ECG of 01-MAY-2013 12:12, Significant changes have occurred Confirmed by Zhou Portillo ([id number]) on 06/05/2020 12:36:43 PM Referred By: REFERRED SELF Confirmed By:Zhou Portillo
[2020-06-05] MEDS ORDERED: LORazepam 0.5 MG TAB PO PRN (14:38)
--- NOTE | 2020-06-05 14:47 | Communication Note ---
Date of Service: June 05, 2020 Feeling well this afternoon. Minimal residual chest discomfort. Denies any shortness of breath Minimal ectopy on telemetry. Troponin 133 Echo shows mild LV dysfunction, EF around 45% with apical akinesis. Dilated IVC On exam well-perfused, no access site complications, no pulmonary congestion. Positive JVD Assessment and plan: 1. Anterior STEMI post primary PCI with BRINDA to proximal LAD 2. Mild nonculprit coronary artery disease 3. Ischemic cardiomyopathy 4. Dyslipidemia 5. GERD 6. Anxiety/insomnia Trend troponin until peak Continue DAPT with aspirin, ticagrelor Increase metoprolol to 25 mg twice daily, continue lisinopril Add spironolactone today. Continue statin May need Lasix tomorrow if persistent congestion. Likely home with as needed Lasix No plan for [facility] Plan for close follow-up on discharge with repeat limited echo due to risk for LV thrombus Possible discharge tomorrow.
[2020-06-05] MEDS: SPIRONOLACTONE 25 MG TAB PO SCH (16:04)
[2020-06-05] MEDS: TICAGRELOR 90 MG TAB PO SCH (16:17)
[2020-06-05] MEDS: METOPROLOL TARTRATE 25 MG TAB PO SCH (21:35)
[2020-06-06] MEDS: TICAGRELOR 90 MG TAB PO SCH (04:58)
[2020-06-06 05:57] LABS: Estimated Average Glucose 120 mg/dl; Hemoglobin A1C 5.8 % (4.5-5.6)
[2020-06-06 06:29] LABS: Basophils # (auto) 0.01 K/uL (0-0.2); Basophils % (auto) 0.1 %; Eosinophils # (auto) 0.01 K/uL (0-0.5); Eosinophils % (auto) 0.1 %; Hematocrit (blood only) 44.8 % (42-52); Hemoglobin 15.4 g/dL (14.0-18.0); Immature Granulocytes # (auto) 0.02 K/uL (0.00-0.02); Immature Granulocytes % (auto) 0.2 %; Lymphocytes # (auto) 1.01 K/uL (1.2-3.4); Mean Corpuscular Hemoglobin 30.1 pg (25-34); Mean Corpuscular Hgb Conc 34.4 g/dL (32-36); Mean Corpuscular Volume 87.7 fL (80-100); Mean Platelet Volume 10.8 fL (7.4-10.4); Monocytes # (auto) 1.47 K/uL (0.11-0.59); Monocytes % (auto) 11.7 %; Neutrophils # (auto) 10.07 K/uL (1.4-6.5); Neutrophils % (auto) 79.9 %; Platelet Count 221 K/uL (130-400); RDW Coefficient of Variation 13.8 % (11.5-14.5); RDW Standard Deviation 44.6 fL (36.4-46.3); Red Blood Count 5.11 M/uL (4.7-6.1); White Blood Count 12.59 K/uL (4.8-10.8)
[2020-06-06 06:59] LABS: BUN Creatinine Ratio 20.9 (10-20); Calcium 8.4 mg/dl (8.5-10.1); Creatinine Clr Calc Pharmacy 89.5 ml/min; Est GFR (Non-African American) 90.6; Potassium 4.1 mmol/L (3.5-5.1)
[2020-06-06 07:23] LABS: Troponin I 92.6 ng/ml (0-0.045)
[2020-06-06] MEDS: SPIRONOLACTONE 25 MG TAB PO SCH (08:32)
[2020-06-06] MEDS: PANTOprazole 40 MG TAB PO SCH (08:33)
[2020-06-06] MEDS: METOPROLOL TARTRATE 25 MG TAB PO SCH (08:33)
[2020-06-06] MEDS: CALCIUM 600MG + VIT D 400 IU TAB PO SCH (09:11)
[2020-06-06] MEDS: ASPIRIN 81 MG ECTAB PO SCH (09:11)
[2020-06-06] MEDS: MULTIVITAMIN TAB PO SCH (09:11)
[2020-06-06] MEDS: ATORVASTATIN 40 MG TAB PO SCH (09:11)
[2020-06-06] MEDS: lisinopril 5 MG TAB PO SCH (09:11)
[2020-06-06] MEDS: ESCITALOPRAM OXALATE 10 MG TAB PO SCH (09:11)
--- NOTE | 2020-06-06 10:36 | Discharge Summary ---
Date of Service June 06, 2020 Admission HPI Per Admitting Provider 64-year-old man here with acute chest pain and ECG concerning for acute AR. Patient seen emergently in the ED after heart alert activated on arrival. No prior cardiac history. Cardiac risk factors include family history of CAD involving his father who had multiple MIs. Other medical issues include GERD, celiac disease, diverticulosis and chronic venous insufficiency. Chest pain began approximately 12:50 AM, almost 2 hours prior to arrival waking him from sleep. Describes initially nausea followed by pain in his left wrist and then chest pain at its worst 7/10. Denies similar symptoms in the past. ECG en route unremarkable. Chest pain variable, down to 2 out of 10 after nitroglycerin, fentanyl. Hemodynamically stable. EKG in ED showed sinus rhythm with anterior ST elevations. Specialty Data Cardiology Cardiac catheterization/PCI 06/05/2020: 1. Anterior STEMI/100% acute proximal LAD occlusion 2. Mild non-culprit coronary artery disease -30% ostial circumflex 20 to 30% proximal RCA 3. Normal intracardiac filling pressure 4. Successful PCI of proximal to mid LAD with single drug-eluting stent (3.0 x 33 mm Xience; postdilated with 4.0 NC). Echo 06/05/2020: EF 45%, apical akinesis, mid anterior septum, septal akinesis, hypokinetic mid anterior, inferior daly. Aortic valve sclerosis with mild AI. Borderline pulmonary hypertension, estimated PASP 40-45, dilated IVC Discharge Data Consultations 06/05/20 04:42 Consult Cardiac Rehabilitation Routine 06/05/20 04:44 Consult Case Management - Discharge Planning Routine Procedures Performed Operation Date: 06/05/20 03:05 Actual Procedures p Aspiration/PCI w/BRINDA for Stemi - Trae Noriega MD s Cineradiography w/Routine Exam - Trae Noriega MD s IVUS Coronary Single Vessel - Trae Noriega MD s Cath, Left with Cors and Vent - Trae Noriega MD Hospital Course (1) Acute AR: Patient taken emergently to cardiac catheterization lab where was found to have an acutely occluded proximal LAD. Was treated with single drug-eluting stent with good angiographic result. Post procedure admitted to telemetry for further observation. He remained largely chest pain-free. Troponin peaked at 185. Echocardiogram showed mild LV dysfunction, EF 45% with LAD distribution wall motion abnormalities. Electrically stable except for brief (less than 5 beats) NSVT. Pertinent hospital labs LDL 93, A1c 5.8. On hospital day 2 patient was feeling well with no recurrent chest pain. He was discharged to home on DAPT with aspirin, ticagrelor. Started on GDMT for his cardiomyopathy with Toprol-XL, lisinopril and spironolactone. Follow-up with cardiology in 1 week with repeat limited echo. Will discuss cardiac rehab at that time. Discharge Instructions Home Medications multivitamin 1 tab PO DAILY #30 tab 11/27/18 [Rx Confirmed 06/05/20] escitalopram oxalate 10 mg tablet 10 mg PO DAILY #30 tab 01/11/20 [Rx Confirmed 06/05/20] zolpidem 10 mg tablet 10 mg PO DAILY PRN #90 tab 05/13/20 [Rx Confirmed ] pantoprazole 40 mg tablet,delayed release 40 mg PO DAILY #90 tab 06/02/20 [Rx Confirmed 06/05/20] calcium carb and citrate-vitD3 1 tab PO DAILY 06/05/20 [History Confirmed 06/05/20] cranberry 500 mg PO DAILY 06/05/20 [History Confirmed 06/05/20] elderberry fruit and flower 1 cap PO DAILY 06/05/20 [History Confirmed 06/05/20] aspirin 81 mg PO QAM #30 tab 06/06/20 [Rx] atorvastatin 80 mg PO QAM #30 tab 06/06/20 [Rx] lisinopril [Zestril] 5 mg PO QAM #30 tab 06/06/20 [Rx] metoprolol succinate [Toprol XL] 50 mg PO DAILY #30 tab 06/06/20 [Rx] nitroglycerin [Nitrostat] 0.4 mg SUBLINGUAL PRN PRN #25 tab 06/06/20 [Rx] spironolactone 25 mg PO QAM #30 tab 06/06/20 [Rx] ticagrelor [Brilinta] 90 mg PO Q12H #60 tab 06/06/20 [Rx] Coding Level of Care Code D/C Day Management <30 mins Diagnoses Acute AR I21.9
[2020-06-06] MEDS ORDERED: ENOXAPARIN INJ 40 MG/0.4 ML SYR SQ SCH (10:45)
== END 2020-06-06 11:17 | disposition home or self-care (01) | DRG 247 ==
LOC: ED 02:38 → CC 03:25 → 1E 03:25 → 2S 14:51